=== PATIENT | female | born 1965 | race Caucasian/White ===

== ENCOUNTER 2025-09-08 10:15 | Outpatient (CLI) | payer OTHER, SELFPAY ==
--- OUTSIDE RECORDS SUMMARY | 2025-09-08 11:17 | XMS_ITS | Clinical Summary ---
Author Organization [facility] Address [address] [place] [id number] Care Team Providers Care Equal Opportunity Officer Name Role Phone Martin Elam MD Primary Care Provider [phone] David Neff MD Unavailable [phone] Allergies Active Allergy Reactions Criticality Noted Date Comments Celecoxib Rash Medium 10/08/2022 Ciprofloxacin Rash Medium 10/08/2022 Loratadine Rash Medium 10/08/2022 Prochlorperazine Hives Medium 10/08/2022 Medications dilTIAZem CD/XR/XT (CARDIZEM CD,DILACOR XR) 120 mg 24 hr capsule Act grayson pantoprazole DR (PROTONIX) 40 mg EC tablet Active montelukast (SINGULAIR) 10 mg tablet Active Active Problems Problem Noted Date Diagnosed Date Benign skin lesion of forehead 10/08/2022 Basal cell carcinoma (BCC) of left cheek 022 Surgical History Surgery Date Site/Laterality Comments HYSTERECTOMY 2002 Medical History Medical History Date Comments Allergic rhinitis 1986 GERD (gastroesophageal reflux disease) 1986 Asthma 1986 Family History Medical History Relation Name Comments Heart failure Father Moo Hypertension Father Moo Stroke Father Moo Heart failure Mother Arti Hypertension Sister 1 Rose Marie Hypertension Sister 2 Chaparrita Relation Name Status Comments Father Moo Mother Arti Sister 1 Rose Marie Sister 2 Chaparrita Social History Tobacco Use Types Packs/Day Years Used Date Smoking Tobacco: Never Tobacco Cessation:Counseling Given: Not Answered AUDIT-C Answer Date Recorded Frequency of Alcohol Consumption Not on file 10/08/2022 Q2: How many drinks containi ng alcohol do you have on a typical day when you are drinking? 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 Gender Identity Not on file Sexual Orientation Not on file Obstetrics History Last Filed Vital Signs Vital Sign Reading Time Taken Comments Blood Pressure 152/82 10/08/2022 8:27 AM INSTRUMENT STERILIZER Pulse 60 10/08/2022 8:27 AM INSTRUMENT STERILIZER Temperature - - Respiratory Rate - - Oxygen Saturation - - Inhaled Oxygen Concentration - - Weight 56.2 kg (124 lb) 10/08/2022 8:27 AM INSTRUMENT STERILIZER Height - - Body Mass Index - - Plan of Treatment Health Maintenance Due Date Last Done Comments Breast Cancer Screening-Mammogram 1965 Colon Cancer Screening-Colonoscopy 1965 Depression Screening 1965 Hepatitis C Screening 1965 Hepatitis B Screening 1981 Regular Well Visit/Exam 18-64 1981 Zoster Vaccine (1 of 2) 2013 Covid-19 Vaccine (2024- season) 2025 07/25/2022, 08/24/2021, 11/17/2020, Additional history exists Influenza Vaccine (#1) 2025 DTaP/Tdap/Td Vaccine (2 - Td or Tdap) 07/01/2032 07/01/2022 Pneumococcal vaccine <65 Aged Out No longer eligible based on patient's age to complete this topic Insurance [facility] Care Teams Equal Opportunity Officer Relationship Specialty Start Date End Date Martin Elam MD [id number] [facility] [address] [facility] [address] [place] [address] PCP - General Internal Medicine 09/18/22 David Neff MD [address] [facility] [place] [address] Referring Physician Plastic Surgery 10/08/22
[2025-09-08 11:32] LABS: Hematocrit 39.8 % (37.0-47.0); Hemoglobin 13.1 g/dL (12.0-15.0); Mean Corpuscular HGB Conc 32.9 g/dl (32-36); Mean Corpuscular Hemoglobin 28.6 pg (26-34); Mean Corpuscular Volume 86.9 fl (80-100); Platelet Count Result 397 k/mm3 (150-375); Red Blood Count 4.58 M/mm3 (4.2-5.4); White Blood Count 12.0 K/mm3 (4.5-10.0)
[2025-09-08 11:56] LABS: Alanine Aminotransferase 33 U/L (6-35); Albumin Level 4.2 g/dL (3.5-5.1); Alkaline Phosphatase 67 U/L (38-126); Anion Gap 7 mmol/L (4-12); Aspartate Amino Transferase 34 U/L (14-36); Bilirubin,Total 0.3 mg/dL (0.2-1.3); Blood Urea Nitrogen 26 mg/dL (7-17); Calcium 9.0 mg/dL (8.4-10.2); Carbon Dioxide 26 mmol/L (22-30); Chloride 104 mmol/L (98-107); Cholesterol 301 mg/dL (0-200); Estimated Glomerular Filt Rate > 60; Glucose 105 mg/dL (65-110); HDL Direct 63 mg/dL; Potassium 3.4 mmol/L (3.4-5.0); Sodium 137 mmol/L (137-145); Total Protein 6.8 g/dL (6.3-8.2); Triglycerides 67 mg/dL (<150)
[2025-09-08 12:31] LABS: Thyroid Stimulating Hormone 3.280 uIU/mL (0.465-4.680)
== END 2025-09-08 10:16 | disposition home or self-care (01) ==
PROVIDERS: PCP Internal Medicine; Visit Provider Nurse Practitioner
DX: Z00.00 Encounter for general adult medical examination without abnormal findings (principal); E55.9 Vitamin D deficiency, unspecified
CPT/HCPCS: 36415; 80053; 80061; 82306; 84443; 85027

== ENCOUNTER 2025-10-14 00:37 | Day surgery (SDC) | payer OTHER, SELFPAY ==
[2025-09-29 09:49] VITALS: BMI 20.5
[2025-10-14 06:15] VITALS: BP 144/73; PULSE 70; RESP 20; TEMP 36.2; O2SAT 100
[2025-10-14] MEDS: LACTATED RINGERS 1,000 ML 150 ML IV CONT (06:26)
--- NOTE | 2025-10-14 07:14 | WPDANESEPPF ---
Anes - Initial Pre Proc Eval Procedure: Operation Date: 10/14/25 07:30 Proposed Procedures p Screening Colonoscopy - Kevin Dunbar MD Date/Time: 10/14/25 07:14 Surgeon: Kevin Dunbar MD Pre Op Diagnosis: Screening Patient Data Age: 60 Gender: F Height: 1.65 m Weight: 56 kg Last Vital Signs Temp 97.1 F L 10/14/25 06:15 Pulse 70 10/14/25 06:15 Resp 20 10/14/25 06:15 BP 144/73 H 10/14/25 06:15 Pulse Ox 100 10/14/25 06:15 O2 Del Method Room Air 10/14/25 06:15 Allergies Allergy/AdvReac Type Severity Reaction Status Date / Time lansoprazole Allergy Severe CAUSES SVT Verified 10/14/25 06:13 SYMTPOMS loratadine Allergy Severe DYSTONIA Verified 10/14/25 06:13 prochlorperazine Allergy Severe DYSTONIA Verified 10/14/25 06:13 ketorolac Allergy Mild Lips Verified 10/14/25 06:13 swollen celecoxib Allergy Unknown RASH Verified 10/14/25 06:13 Home Medications ?Medication ?Instructions ?Recorded ?Confirmed ?Type azelastine 137 mcg (0.1 %) nasal 2 spray intranasal Q12H PRN nasal 11/02/19 09/29/25 History spray congestion diltiazem HCl 180 mg 180 mg PO DAILY #90 caps 04/21/25 10/14/25 Rx capsule,extended release 24 hr pantoprazole 40 mg tablet,delayed See Rx Instructions .Route 07/25/25 10/14/25 Rx release .COMPLEX #90 tabs albuterol sulfate 90 mcg/actuation 2 inh inhalation Q4-6H PRN 09/12/25 09/29/25 Rx aerosol inhaler (ProAir HFA) shortness of breath or wheezing #18 grams atorvastatin 10 mg tablet (Lipitor) 10 mg PO QHS #90 tabs 09/12/25 10/14/25 Rx lorazepam 0.5 mg tablet 0.5 mg PO BID PRN anxiety #60 tabs 09/12/25 09/29/25 Rx montelukast 10 mg tablet 10 mg PO QPM 09/29/25 10/14/25 History losartan 50 mg tablet 50 mg PO DAILY #30 tabs 10/04/25 10/14/25 Rx Patient hx anesthesia problems: none Family hx anesthesia problems: none Results Review: All pre-operative results and documents have been reviewed as part of the pre-operative evaluation. [facility] Past Medical History Medical History (Updated 10/13/25 @ 08:08 by Shola Philip DO) Asthma, exercise induced Anxiety Hypertension Hyperlipidemia Family History Family History Father Family history of coronary artery disease, Onset Age: 60 Patient's father is Other Cerebrovascular accident Family history of arthritis Family history of cardiovascular disease Family history of kidney disease Hypertension Social History Social History Smoking packs per day: 0.5 Smoking cigarettes per day: 10.0 Smoking status: Former smoker Tobacco type: cigarettes Second hand tobacco smoke exposure: No Smoking end date: 11/10/07 Alcohol intake: never Lack of Transportation: No Lack of Food: Never True Current Housing: I Have Housing Concerned About Future Housing: No Difficulty Paying Gas/Electric Bills: No Difficulty Paying for Meds: No Currently Unemployed: No Education: Bachelor's Degree Difficulty w/ Childcare or Family Care: No Living arrangements: with family Spiritual care concerns: No Anes - Eval Final PreProcedure Day of Procedure 10/14/25 07:14 Patient weight: normal Heart: regular rate and rhythm Lungs: clear to auscultation Airway: Mallampati scale Neurological: alert and oriented Last oral intake: >/= 8 hours ASA classification: II Emergent: no Anesthetic plan: proceed Anesthesia type and monitoring: general GIVS and standard monitoring Results Review: All pre-operative results and documents have been reviewed as part of the pre-operative evaluation. HTN, hyperlipidemia, sport induced asthma, ,stable, active w running most days, no cp or sob. Informed Consent: The patient's anesthetic plan and its attendant risks and benefits were discussed with the patient/family/POA. Questions were solicited and answers provided to the satisfaction of the patient/family/POA.
--- NOTE | 2025-10-14 07:30 | PM.HPGS ---
History of Present Illness History of Present Illness Consent: Risks, benefits, and alternatives have been discussed and questions answered. Patient agrees to proceed with procedure. Chief complaint: Screening Narrative: Brandie Santiago is a 60 year old female here for first screening colonoscopy Review of Systems Review of Systems: All systems reviewed & are unremarkable except as noted in HPI and below PMFSH Past Medical History Medical History (Updated 10/13/25 @ 08:08 by Shola Philip, ) Asthma, exercise induced Anxiety Hypertension Hyperlipidemia Family History Family History Father Family history of coronary artery disease, Onset Age: 60 Patient's father is Other Cerebrovascular accident Family history of arthritis Family history of cardiovascular disease Family history of kidney disease Hypertension Social History Social History Smoking packs per day: 0.5 Smoking cigarettes per day: 10.0 Smoking status: Former smoker Tobacco type: cigarettes Second hand tobacco smoke exposure: No Smoking end date: 11/10/07 Alcohol intake: never Lack of Transportation: No Lack of Food: Never True Current Housing: I Have Housing Concerned About Future Housing: No Difficulty Paying Gas/Electric Bills: No Difficulty Paying for Meds: No Currently Unemployed: No Education: Bachelor's Degree Difficulty w/ Childcare or Family Care: No Living arrangements: with family Spiritual care concerns: No Meds Home Medications and Allergies Home Medications ?Medication ?Instructions ?Recorded ?Confirmed ?Type azelastine 137 mcg (0.1 %) nasal 2 spray intranasal Q12H PRN nasal 11/02/19 09/29/25 History spray congestion diltiazem HCl 180 mg 180 mg PO DAILY #90 caps 04/21/25 10/14/25 Rx capsule,extended release 24 hr pantoprazole 40 mg tablet,delayed See Rx Instructions .Route 07/25/25 10/14/25 Rx release .COMPLEX #90 tabs albuterol sulfate 90 mcg/actuation 2 inh inhalation Q4-6H PRN 09/12/25 09/29/25 Rx aerosol inhaler (ProAir HFA) shortness of breath or wheezing #18 grams atorvastatin 10 mg tablet (Lipitor) 10 mg PO QHS #90 tabs 09/12/25 10/14/25 Rx lorazepam 0.5 mg tablet 0.5 mg PO BID PRN anxiety #60 tabs 09/12/25 09/29/25 Rx montelukast 10 mg tablet 10 mg PO QPM 09/29/25 10/14/25 History losartan 50 mg tablet 50 mg PO DAILY #30 tabs 10/04/25 10/14/25 Rx Allergies Allergy/AdvReac Type Severity Reaction Status Date / Time lansoprazole Allergy Severe CAUSES SVT Verified 10/14/25 06:13 SYMTPOMS loratadine Allergy Severe DYSTONIA Verified 10/14/25 06:13 prochlorperazine Allergy Severe DYSTONIA Verified 10/14/25 06:13 ketorolac Allergy Mild Lips Verified 10/14/25 06:13 swollen celecoxib Allergy Unknown RASH Verified 10/14/25 06:13 Vital Signs Vital Signs - 24 hr 10/14/25 06:15 Temperature 97.1 F L Pulse Rate 70 Respiratory Rate 20 Blood Pressure 144/73 H Pulse Oximetry 100 Oxygen Delivery Room Air Exam Const: General: comfortable and no acute distress HENMT: Face/Nose/Sinus: Normal nares present Eyes: General: appearance normal, both eyes and all related structures Neck: Neck: no JVD Resp: Auscultation: clear to auscultation bilaterally Cardio: Rate: regular rate Rhythm: regular rhythm GI: Inspection: non-distended GI Palp: Yes Soft to palpation Skin: General skin exam: normal color Extrem: General: normal to inspection Psych: Mental Status: mental status grossly normal Assessment and Plan Assessment and plan (1) Screening for colon cancer: Code(s): Z12.11 - Encounter for screening for malignant neoplasm of colon Status: Acute Assessment and Plan: colonoscopy
--- NOTE | 2025-10-14 07:49 | S_PTH ---
PATIENT: Brandie Yanes LOC: [facility]#:[id number] AGE/SX: 60/F ROOM: RE10/14/[address]: Kevin Dunbar MD : 1965 BED: DIS: 10/14/2025 SPEC #: [id number] RECD: 10/14/25 08:50 STATUS: TYRONE BLUM #: [id number] KATHY: 10/14/25 07:[address]: Kevin Dunbar DEPT: [facility] Surgical RECD BY: Shahrzad Marin ENTERED: 10/14/25 08:51 SP TYPE: Surgical OTHR DR: Charo Rangel, ZAKI Tissues: A - Colon Polypectomy B - Colon Polypectomy C - Colon Polypectomy Procedures: Hematoxylin and Eosin Stain Gross and Microscopic Level 4
[2025-10-14 07:50] VITALS: BP 103/60; PULSE 72; RESP 16; O2SAT 97
[2025-10-14 08:00] VITALS: BP 99/59; PULSE 70; RESP 14; O2SAT 98
[2025-10-14 08:10] VITALS: BP 147/76; PULSE 68; RESP 20; O2SAT 100
== END 2025-10-14 08:17 | disposition home or self-care (01) ==
PROVIDERS: PCP Nurse Practitioner; Referring Provider Nurse Practitioner; Visit Provider Internal Medicine Gastroenterology
PROC: 0DJD8ZZ Inspection of Lower Intestinal Tract, Via Natural or Artificial Opening Endoscopic (ICD-10-PCS; CPT 45378; principal; 2025-10-14 07:30)
DX: Z12.11 Encounter for screening for malignant neoplasm of colon (principal); D12.0 Benign neoplasm of cecum; D12.3 Benign neoplasm of transverse colon; D12.5 Benign neoplasm of sigmoid colon; K64.8 Other hemorrhoids; J45.909 Unspecified asthma, uncomplicated; F41.9 Anxiety disorder, unspecified; I10 Essential (primary) hypertension; E78.5 Hyperlipidemia, unspecified; Z79.51 Long term (current) use of inhaled steroids; Z87.891 Personal history of nicotine dependence; Z82.49 Family history of ischemic heart disease and other diseases of the circulatory system
CPT/HCPCS: 45385; 88305; J2003; J2704; J7120

== ENCOUNTER 2025-10-17 13:14 | Emergency (ER) | payer OTHER, SELFPAY ==
[2025-10-17 13:15] VITALS: O2SAT 44
--- NOTE | 2025-10-17 13:15 | PC.NURSE ---
AMCHELLE Martini attempted to get repeat POC glucose. Pt. not perfusing. Unable to get B.S.
--- NOTE | 2025-10-17 13:23 | PC.NURSE ---
Time of called by Dr. Holman at this time.
--- NOTE | 2025-10-17 13:49 | ED.CPR ---
HPI - CPR General Chief Complaint: Cardiac Arrest/CPR Stated Complaint: cardiac arrest History of Present Illness HPI narrative: Patient reportedly had some chest pain yesterday, after shoveling snow, and called her around 8 this morning before he went to work, the daughter was trying again to the house and nobody was answering, EMS arrived, found her pulseless, started chest compressions, placed airway, started CPR and gave 4 rounds of epi and D10 for blood sugar 40 before arrival to the ER. Has been in asystole the entire time. Related Data Home Medications ?Medication ?Instructions ?Recorded ?Confirmed ?Last Taken ?Type azelastine 137 mcg (0.1 %) nasal 2 spray intranasal Q12H PRN nasal 11/02/19 09/29/25 Unknown History spray congestion montelukast 10 mg tablet 10 mg PO QPM 09/29/25 10/14/25 10/13/25 History Allergies Allergy/AdvReac Type Severity Reaction Status Date / Time lansoprazole Allergy Severe CAUSES SVT Verified 10/14/25 06:13 SYMTPOMS loratadine Allergy Severe DYSTONIA Verified 10/14/25 06:13 prochlorperazine Allergy Severe DYSTONIA Verified 10/14/25 06:13 ketorolac Allergy Mild Lips Verified 10/14/25 06:13 swollen celecoxib Allergy Unknown RASH Verified 10/14/25 06:13 Review of Systems Review of Systems: All systems reviewed & are unremarkable except as noted in HPI and below PMFSH Past Medical History Medical History (Updated 10/17/25 @ 13:56 by Kina Holman MD) Asthma, exercise induced Anxiety Hypertension Hyperlipidemia Family History Family History Father Family history of coronary artery disease, Onset Age: 60 Patient's father is Other Cerebrovascular accident Family history of arthritis Family history of cardiovascular disease Family history of kidney disease Hypertension Social History Social History Smoking packs per day: 0.5 Smoking cigarettes per day: 10.0 Smoking status: Former smoker Tobacco type: cigarettes Second hand tobacco smoke exposure: No Smoking end date: 11/10/07 Alcohol intake: never Lack of Transportation: No Lack of Food: Never True Current Housing: I Have Housing Concerned About Future Housing: No Difficulty Paying Gas/Electric Bills: No Difficulty Paying for Meds: No Currently Unemployed: No Education: Bachelor's Degree Difficulty w/ Childcare or Family Care: No Living arrangements: with family Spiritual care concerns: No Exam Narrative: EXAMINATION OF ORGAN SYSTEMS/BODY AREAS: Constitutional: Vital signs per nursing GENERAL: Unresponsive HEAD: No obvious signs of trauma EYES: Pupils dilated and unresponsive LUNGS: Nonlabored breathing. HEART: Asystole ABD: No distension EXT: No obvious deformity SKIN: Pale and blue NEURO: Unresponsive MDM MDM Narrative Medical decision making narrative: Patient is one of our hospital house supervisors. She presents unresponsive, last complaint had been of chest pain, last spoke to around 8 this morning. When EMS arrived they placed IV, started D10 fluids, placed i-Gel, and transported here, total 4 rounds epi given. Upon arrival here she remains in asystole, additional rounds continued here, unfortunately on repeat bedside ultrasounds I have no cardiac activity. Patient remains in asystole. Time of called at 1:23 p.m.. Differential Diagnosis Differential Diagnosis: Cardiac arrest UT, PE, etc. Discharge Plan Discharge Clinical Impression: Cardiac arrest Patient Disposition: Condition: Patient Language: Yi Prescriptions: No Action albuterol sulfate [ProAir HFA] 90 mcg/actuation HFA aerosol inhaler 2 inh inhalation Q4-6H PRN (Reason: shortness of breath or wheezing) Qty: 18 3RF atorvastatin [Lipitor] 10 mg tablet 10 mg PO QHS Qty: 90 1RF lorazepam 0.5 mg tablet 0.5 mg PO BID PRN (Reason: anxiety) Qty: 60 0RF montelukast 10 mg tablet 10 mg PO QPM Rx Instructions: Take 1 tablet by mouth once daily azelastine 137 mcg (0.1 %) aerosol,spray 2 spray NASAL Q12H PRN (Reason: nasal congestion) diltiazem HCl 180 mg capsule,extended release 24hr 180 mg PO DAILY Qty: 90 2RF pantoprazole 40 mg tablet,delayed release (DR/EC) See Rx Instructions .ROUTE .COMPLEX Qty: 90 1RF Dose Instruction: TAKE 1 TABLET BY MOUTH ONCE DAILY IN THE MORNING Rx Instructions: TAKE 1 TABLET BY MOUTH ONCE DAILY IN THE MORNING losartan 50 mg tablet 50 mg PO DAILY Qty: 30 0RF Follow-up/Referrals: Charo Rangel, FUGITIVE INVESTIGATOR [Primary Care Provider, Internal Medicine]
--- NOTE | 2025-10-17 14:49 | PC.NURSE ---
[facility] staff contacted per family request to use their services. They were made aware we are waiting for [facility] to contact us re: patient eligibility to donate organs/tissue. They were told patient would be transported to [facility] [place] in the meantime and were agreeable.
--- NOTE | 2025-10-17 16:27 | PC.NURSE ---
[facility] called for update. They have completed the screening, but are still waiting to approach family.
== END 2025-10-17 16:46 | disposition expired ==
PROVIDERS: Emergency Provider Emergency Medicine; PCP Nurse Practitioner
DX: I46.9 Cardiac arrest, cause unspecified (principal); J45.909 Unspecified asthma, uncomplicated; F41.9 Anxiety disorder, unspecified; I10 Essential (primary) hypertension; E78.5 Hyperlipidemia, unspecified
CPT/HCPCS: 92950; 99285; J0168; J7030